=== PATIENT | female | born 1980 ===

== ENCOUNTER 2017-12-13 09:56 | Emergency (ER) | payer OTHER ==
[2017-12-13 09:56] VITALS: BMI 38.2
[2017-12-13 10:20] VITALS: RESP 18; TEMP 98.2; O2SAT 97
--- NOTE | 2017-12-13 10:26 | C.PDOC ---
History Of Present Illness 37 year old female with a history of sciatica resents to the ED for evaluation of worsening left buttock pain for 4 days. Patient reports the pain radiates down the left leg and notes the pain is similar to previous pain. The patient believes the pain was triggered by sitting on a new chair at work because upon standing she felt the pain which worsened over the weekend. Admits to taking Naproxen for the pain with no improvement. Denies abdominal pain, dysuria, flank pain, constipation, weakness, numbness, tingling, and any other associated symptoms. Denies bowel or bladder incontinence. Time Seen by Provider: 12/13/17 10:16 Chief Complaint (Nursing): Back Pain History Per: Patient History/Exam Limitations: no limitations Onset/Duration Of Symptoms: Days Current Symptoms Are (Timing): Still Present Past Medical History Reviewed: Historical Data, Nursing Documentation, Vital Signs Vital Signs: Last Vital Signs Temp 98.2 F 12/13/17 10:16 Pulse 90 12/13/17 10:16 Resp 18 12/13/17 10:16 BP 94/60 L 12/13/17 10:16 Pulse Ox 97 12/13/17 10:16 - Medical History PMH: Diabetes, HTN, Hyperthyroidism Denies: Depression, Chronic Kidney Disease Surgical History: Tonsillectomy - [facility] OTHER SKIN & SUBQ I D (09/13/12) Family History: States: Unknown Family Hx - Social History Hx Tobacco Use: No Hx Alcohol Use: No Hx Substance Use: No Review Of Systems Constitutional: Negative for: Fever, Chills Cardiovascular: Negative for: Chest Pain, Palpitations, Orthopnea, Edema Respiratory: Negative for: Cough, Shortness of Breath, SOB with Excertion, Wheezing Gastrointestinal: Negative for: Nausea, Vomiting, Abdominal Pain, Constipation, Other (flank pain. ) Genitourinary: Negative for: Dysuria, Frequency Musculoskeletal: Positive for: Other (left buttock pain radiating down the left leg. ) Neurological: Negative for: Weakness, Numbness, Incoordination Physical Exam - Physical Exam Appears: Well, Non-toxic Skin: Normal Color, Warm, Dry Head: Atraumatic, Normacephalic Eye(s): bilateral: Normal Inspection, PERRL, EOMI Oral Mucosa: Moist Neck: Normal ROM, Supple Chest: Symmetrical, No Deformity Cardiovascular: Rhythm Regular, No Murmur Respiratory: Normal Breath Sounds, No Rales, No Rhonchi, No Wheezing Gastrointestinal/Abdominal: Normal Exam, Soft, No Tenderness Back: No CVA Tenderness, No Vertebral Tenderness, No Decreased ROM, Straight Leg Raising Extremity: Tenderness (to the left gluteal region and on the left lateral thigh. ), No Calf Tenderness, No Deformity, No Swelling Neurological/Psych: Oriented x3, Normal Speech, Normal Motor, Normal Sensation, Normal Reflexes Gait: Steady ED Course And Treatment O2 Sat by Pulse Oximetry: 97 (RA) Pulse Ox Interpretation: Normal Medical Decision Making Medical Decision Making: Plan: -Toradol -Valium Patient neurologically intact with no midline pain, no history of trauma and no urinary complaitns. On reevaluation, patient feels better. She was counselled on way to help her scaiatica pain. She has naproxen at home and was given detailed return instructions. Disposition - Disposition Disposition: HOME/ ROUTINE Disposition Time: 12:15 Condition: GOOD Additional Instructions: Follow-up with PMD within 2 days. Return to ED if condition worsens. Naproxen or motrin for pain. Valium for severe pain. Prescriptions: Diazepam [Valium] 2 mg PO BID PRN #6 tablet PRN Reason: back pain Instructions: Sciatica, Sciatica Exercises Forms: [facility] (Frisian), Work Excuse - Clinical Impression Clinical Impression: Sciatic nerve pain - Scribe Statement The provider has reviewed the documentation as recorded by the Scribe (Shruthi Tran) Provider Attestation: All medical record entries made by the Scribe were at my direction and personally dictated by me. I have reviewed the chart and agree that the record accurately reflects my personal performance of the history, physical exam, medical decision making, and the department course for this patient. I have also personally directed, reviewed, and agree with the discharge instructions and disposition.
[2017-12-13 12:25] VITALS: BP 120/75; PULSE 79
== END 2017-12-13 12:25 | disposition home or self-care (01) ==
LOC: C.ER 09:56
DX: M54.30 Sciatica, unspecified side (principal); E11.9 Type 2 diabetes mellitus without complications; I10 Essential (primary) hypertension; E05.90 Thyrotoxicosis, unspecified without thyrotoxic crisis or storm
CPT/HCPCS: 96372; 99284; J1885